=== PATIENT | female | born 1935 | race Caucasian/White ===

== ENCOUNTER → 2023-05-07 09:46 | Outpatient (REF) | payer OTHER, SELFPAY | LOC: RAD 09:46 | PROVIDERS: ATTENDING PHYSICIAN Surgery Vascular Surgery; FAMILY PHYSICIAN Internal Medicine Geriatric Medicine | DX: I65.23 Occlusion and stenosis of bilateral carotid arteries (principal) | CPT/HCPCS: 93880 ==

== ENCOUNTER 2023-06-25 17:54 | Emergency (ER) | payer OTHER, SELFPAY ==
[2023-06-25 17:59] VITALS: BP 117/93
[2023-06-25 18:00] VITALS: BP 121/94
[2023-06-25 18:10] LABS: Hemoglobin 10.8 g/dL (12.0-16.0); Mean Corp Hgb Conc. 33.8 g/dL (33.0-37.0); Mean Corpuscular Hgb 28.9 pg (27.0-31.0); Mean Corpuscular Volume 85.6 fL (81.0-99.0); Mean Platelet Volume 10.6 fL (7.4-10.4); Platelet Count 234 10^3/uL (130-400); Red Blood Cell Count 3.74 10^6/uL (4.20-5.40); Red Cell Dist. Width 14.2 % (11.5-14.5); White Blood Cell Count 5.2 10^3/uL (4.8-10.8)
[2023-06-25 18:25] LABS: ALT (SGPT) < 10 U/L (0-35); AST (SGOT) 23 U/L (14-36); Alkaline Phosphatase 66 U/L (38-126); Blood Urea Nitrogen 17 mg/dl (7-17); Calcium 9.4 mg/dl (8.4-10.2); Carbon Dioxide 24 mmol/L (22-30); Chloride 105 mmol/L (98-107); Estimated Creatinine Clearance 43 ml/min; Glucose 92 mg/dl (70-99); Potassium 4.3 mmol/L (3.5-5.1); Sodium 138 mmol/L (135-145); Total Bilirubin 0.4 mg/dl (0.2-1.3); Total Protein 7.1 g/dl (6.3-8.2); eGFR > 60.00
--- NOTE | 2023-06-25 18:26 | ED.CVA ---
History of Present Illness
General
Chief Complaint: CVA/TIA Symptoms
Source: patient
Exam Limitations: none
Time Seen by Provider: 06/25/23 18:06
Onset of Stroke Symptoms
Onset of symptoms known: Yes
Date of onset of symptoms: 06/25/23
Time of onset of symptoms: 17:30
Time pt last seen normal is known: Yes
Date last time pt seen normal: 06/25/23
Time last time pt seen normal: 17:29
Travel History
Have you had any contact with someone who has COVID-19?: No
Do you have any symptoms of coronavirus? Fever > 100 degrees, chills, cough, shortness of breath, sore throat, loss of taste or smell, muscle aches, or headache?: No
History of Present Illness
History of Present Illness:
88-year-old female with history of TIA and stroke presents from home via EMS with slurred speech and facial droop that started at 5:30 PM tonight. This started soon after the physical therapist left her house. She had an extra strenuous therapy
session with PT today. She has a history of TIAs presenting with slurred speech. She has history of bleeding and does not take any anticoagulants. Currently she states she feels back to her baseline. She denies headache chest pain abdominal pain
nausea vomiting or shortness of breath. She denies any unilateral numbness or weakness. She is accompanied by her son and sourcing manager and they states she is pretty much back to baseline at this time.
Past History
Past History
ED Past Medical History: Cancer (Lung), CVA (tia), HTN, Hypercholesterolemia and Other (gi bleed)
ED Past Surgical History: Other (Right upper lobectomy)
Social History
Tobacco: Former smoker
Alcohol: None
Drug: None
Personal: Single
Living: with family
Family History
Family History: Other (reviewed and noncontributory)
Phy Exam
Physical Exam
Physical Exam:
General: Well-appearing female no acute respiratory distress
HEENT: Normocephalic atraumatic neck is supple
Heart: Regular rate and rhythm no murmurs
Lungs: Clear no wheeze or rales
Neurologic: Alert and oriented x 3 no facial droop. No slurred speech finger-nose intact no drift [id number] intact.
Extremities: No cyanosis
Course
Orders/Labs/Results
Orders:
Orders
06/25/23 18:00
Electrocardiogram (*1) Urgent
Reason for Study: Fatigue / Weakness
EKG- Treatment ONCE
06/25/23 18:04
CMP [Comprehensive Metabolic Panel] Urgent
Complete Blood Count/With Diff Urgent
Manual Differential Urgent
06/25/23 18:17
CT Head W/o Iv Contrast Urgent
Comment:
Reason For Exam: slurred speech
Abnormal Lab Results
06/25/23
18:04
RBC 3.74 L 10^6/uL
(4.20-5.40)
Hgb 10.8 L g/dL
(12.0-16.0)
Hct 32.0 L %
(37.0-47.0)
MPV 10.6 H fL
(7.4-10.4)
Abs Neuts (Manual) 1.3 L 10^3/uL
(1.4-6.5)
Segmented Neutrophils 25 L %
(42-75)
Monocytes (Manual) 22 H %
(2-9)
06/25/23 18:04
06/25/23 18:04
Vital Signs
Initial and Last Documented VS:
Initial Vital Signs
Temp Pulse Resp BP Pulse Ox
97.9 F 69 18 117/93 97
06/25/23 17:59 06/25/23 17:59 06/25/23 17:59 06/25/23 17:59 06/25/23 17:59
Last Documented Vital Signs
Temp Pulse Resp BP Pulse Ox
97.9 F 64 13 121/94 96
06/25/23 17:59 06/25/23 18:30 06/25/23 18:30 06/25/23 18:00 06/25/23 18:30
MDM/Problems Addressed
Differential Diagnosis Includes:
Episode of slurred speech and facial droop now seemingly resolved. Question fatigue from physical therapy versus TIA versus anemia versus electrolyte abnormality. EKG through triage shows sinus rhythm with a rate of 66. CT head pending. Symptoms
back to baseline with an NIH of 0. Not a TNK candidate.
*Critical Care Note
Total Time (30-74mins, 75-104mins- exclusive of procedures): Not Applicable
Update Note
Update Note:
Patient reexamined still at neurologic baseline no deficits noted. CT head negative. Labs reviewed without significant finding. Patient is requesting to go home. She is accompanied by son and sourcing manager. They also are in agreement with
discharge. Question possible TIA but Renzo will not change if that were the case. No intervention necessary at this time
ED Attending Note
-
Portions of this chart may have been created with voice recognition software.� Occasional wrong word or��sound alike� substitutions may have occurred due to the inherent limitations of voice recognition software.
Discharge Plan
Departure
Patient Disposition: Home (Routine Discharge)
Date of Disposition: 06/25/23
Time of Disposition: 19:59
Patient with high blood pressure during this ER visit?: No
Discharge Problem:
episode of slurred speech
Instructions: Transient Ischemic Attack (DC)
Prescriptions:
No Action
albuterol sulfate 90 mcg/actuation Hfa Aerosol Inhaler
1 inh INHALATION R Q4 PRN (Reason: sob/wheezing)
pregabalin 150 mg capsule
150 mg PO HS
Patient Comments:
06/25/2023: last filled 06/15/23, 60 tabs for 30 days from [facility]
pregabalin 150 mg capsule
150 mg PO DAILY PRN (Reason: foot pain)
Patient Comments:
06/25/2023: last filled 06/15/23, 60 tabs for 30 days from [facility]
Centrum Adult 50 Plus 80 mcg Tablet,Chewable
1 tab PO DAILY
Breztri Aerosphere 160-9-4.8 mcg/actuation Hfa Aerosol Inhaler
2 inh INHALATION R BID
Referrals:
Anders Brown MD [Family Provider] -
Activity Restrictions/Additional Instructions:
Please return here for worsening symptoms. Follow-up with your family doctor otherwise
Interventions
Interventions:
*Risk Screen - Suicide Last Done: 06/25/23 18:01
*General Assessment Last Done: 06/25/23 18:01
*Neglect/Abuse Screening Last Done: 06/25/23 18:01
*ED COVID-19 Vaccine History Last Done: 06/25/23 18:01
ED- Pulmonary Assessment Last Done: 06/25/23 18:02
ED- Neurological Assessment Last Done: 06/25/23 18:02
ED- Cardiac Assessment Last Done: 06/25/23 18:02
Discharge Date and Time
Print Language: GABONESE
[2023-06-25 18:40] LABS: Absolute Neutrophils -Man Diff 1.3 10^3/uL (1.4-6.5); Atypical Lymphocytes 2 %; Band Neutrophils 0 % (0-3); Lymphocytes 51 % (20-51); Monocytes 22 % (2-9); Pathologist Reviewed No; Segmented Neutrophils 25 % (42-75)
[2023-06-25 18:41] LABS: Normal RBC Morphology Yes; Platelets Checked Yes; Total Cells Counted 100
[2023-06-25 20:17] VITALS: BP 98/75
== END 2023-06-25 20:30 | disposition home or self-care (01) ==
LOC: EMR 17:54
PROVIDERS: EMERGENCY PHYSICIAN Emergency Medicine; FAMILY PHYSICIAN Internal Medicine Geriatric Medicine
DX: R47.81 Slurred speech (principal); R29.810 Facial weakness; Z86.73 Personal history of transient ischemic attack (TIA), and cerebral infarction without residual deficits; I10 Essential (primary) hypertension; E78.00 Pure hypercholesterolemia, unspecified; Z87.891 Personal history of nicotine dependence
CPT/HCPCS: 99284; 70450; 80053; 85025; 93005

== ENCOUNTER 2023-06-26 16:05 | Emergency (ER) | payer OTHER, SELFPAY ==
[2023-06-26 16:05] VITALS: BMI 23.2
[2023-06-26 16:18] VITALS: BP 100/62
--- NOTE | 2023-06-26 17:51 | ED.SKININJ ---
HPI-Injury
General
Chief Complaint: Fall
Source: patient
Exam Limitations: none
Time Seen by Provider: 06/26/23 16:10
Nursing documentation reviewed up to this point in time: agreed with
Travel History
Have you had any contact with someone who has COVID-19?: No
Do you have any symptoms of coronavirus? Fever > 100 degrees, chills, cough, shortness of breath, sore throat, loss of taste or smell, muscle aches, or headache?: No
History of Present Illness-Injury
Is this injury a work related problem?: No
Is pt an associate of [facility]?: No
Initial Injury comments:
Patient states she tripped on the tie to her robe and fell into the mulch. Hit head on firepit. No LOC. Was able to call for help form passerby. Sustained lac to right posterior scalp, left index finger and right wrist. Injury occurred just [employer]
Past History
Past History
ED Past Medical History: Cancer (Lung), CVA (tia), HTN, Hypercholesterolemia and Other (gi bleed)
ED Past Surgical History: Other (Right upper lobectomy)
Social History
Tobacco: Former smoker
Alcohol: None
Drug: None
Personal: Single
Living: with family
Family History
Family History: Other (reviewed and noncontributory)
Skin Exam
Laceration
Right Posterior Scalp:
Length in cm: 3
Orientation: vertical
Type of Laceration: simple
Any active bleeding?: no active bleeding
Distal skin color and temperature: normal-warm & good color
Normal distal neurovascular exam: Yes
Range of motion: full
Left Second Finger:
Length in cm: 2
Orientation: horizontal
Type of Laceration: simple
Any active bleeding?: no active bleeding
Distal skin color and temperature: normal-warm & good color
Normal distal neurovascular exam: Yes
Range of motion: full
Abrasion
Right Wrist:
Description of abrasion: superfical/clean
Phy Exam
General Physical Exam
General Presentation: well appearing and no apparent distress
General age: appears stated age
General Skin: warm and dry
General Habitus: normal
General Mental: alert
Anjali Coma Scale
Eye Opening: Spontaneous
Verbal Response: Oriented
Motor Response: Obeys Commands
GCS Total Score: 15
Musculoskeletal Exam
Musculoskeletal Exam: full ROM and neuro vasc intact
Skin Exam
Skin Exam: normal color, warm/dry and no rash
Psychiatric Exam
Psychiatric Exam: normal mood/affect
Course
Orders/Labs/Results
Orders:
Orders
06/26/23 16:[address] [CT Head W/o Iv Contrast] Urgent
Comment:
Reason For Exam: fall right head laceration no thinners
Vital Signs
Initial and Last Documented VS:
Initial Vital Signs
Temp Pulse Resp Pulse Ox
98.4 F 66 17 98
06/26/23 16:09 06/26/23 16:09 06/26/23 16:09 06/26/23 16:09
Last Documented Vital Signs
Temp Pulse Resp BP Pulse Ox
98.4 F 66 17 100/62 98
06/26/23 16:09 06/26/23 16:09 06/26/23 16:09 06/26/23 16:18 06/26/23 16:09
Procedures
Laceration Closure
Right Posterior Scalp:
Status of Wound: clean
Description of Wound Edges: sharp
Preparation: cleaned with saline
Anesthesia: 1% Lidocaine
Revision/Debridement: routine- no revision
Wound exploration: explored to base- no FB
Type of Closure: single layer closure
Skin Closure Material: skin guerita
Left Second Finger:
Status of Wound: clean
Description of Wound Edges: sharp
Preparation: cleaned with saline
Revision/Debridement: routine- no revision
Wound exploration: explored to base- no FB and no tendon involvement
Type of Closure: Dermabond-skin glue
*Radiology
Radiology exam reviewed: radiology read reviewed
*Pulse Oximetry
Patient hypoxic: no
*Critical Care Note
Total Time (30-74mins, 75-104mins- exclusive of procedures): Not Applicable
ED Attending Note
-
Portions of this chart may have been created with voice recognition software.� Occasional wrong word or��sound alike� substitutions may have occurred due to the inherent limitations of voice recognition software.
Discharge Plan
Departure
Patient Disposition: Home (Routine Discharge)
Date of Disposition: 06/26/23
Time of Disposition: 17:48
Patient with high blood pressure during this ER visit?: No
Condition: Good
Covid-19: Not Applicable
Discharge Problem:
Head injury, Laceration of scalp, Finger laceration
Instructions: Laceration Repair With Glue (DC), Head Injury in Adults (DC), Laceration Repair With Isabel (DC), Preventing falls in adults
Prescriptions:
No Action
albuterol sulfate 90 mcg/actuation Hfa Aerosol Inhaler
1 inh INHALATION R Q4 PRN (Reason: sob/wheezing)
pregabalin 150 mg capsule
150 mg PO HS
Patient Comments:
06/25/2023: last filled 06/15/23, 60 tabs for 30 days from [facility]
pregabalin 150 mg capsule
150 mg PO DAILY PRN (Reason: foot pain)
Patient Comments:
06/25/2023: last filled 06/15/23, 60 tabs for 30 days from [facility]
Centrum Adult 50 Plus 80 mcg Tablet,Chewable
1 tab PO DAILY
Breztri Aerosphere 160-9-4.8 mcg/actuation Hfa Aerosol Inhaler
2 inh INHALATION R BID
Referrals:
Anders Brown MD [Family Provider] - (Guerita can be removed in 7-10 days.)
Activity Restrictions/Additional Instructions:
Scalp guerita can be removed in 7-10 days. Do not remove tape strips on finger.
Interventions
Interventions:
*Risk Screen - Suicide Last Done: 06/26/23 16:09
*General Assessment Last Done: 06/26/23 16:09
*Neglect/Abuse Screening Last Done: 06/26/23 16:09
ED- Fall Risk Assessment Last Done: 06/26/23 16:09
*ED COVID-19 Vaccine History Last Done: 06/26/23 16:09
ED-Musculoskeletal Assessment Last Done: 06/26/23 16:09
ED- Neurological Assessment Last Done: 06/26/23 16:09
ED-Skin Assessment Last Done: 06/26/23 16:09
Discharge Date and Time
Print Language: MONGOLIAN
[2023-06-26 18:25] VITALS: BP 85/62
[2023-06-26 19:15] VITALS: BP 101/75; BP 90/53; BP 99/74; PULSE 71; PULSE 78; PULSE 82
== END 2023-06-26 19:19 | disposition home or self-care (01) ==
LOC: EMR 16:05
PROVIDERS: EMERGENCY PHYSICIAN Emergency Medicine; FAMILY PHYSICIAN Internal Medicine Geriatric Medicine
DX: S01.01XA Laceration without foreign body of scalp, initial encounter (principal); S61.211A Laceration without foreign body of left index finger without damage to nail, initial encounter; S60.811A Abrasion of right wrist, initial encounter; S09.90XA Unspecified injury of head, initial encounter; W01.198A Fall on same level from slipping, tripping and stumbling with subsequent striking against other object, initial encounter; I10 Essential (primary) hypertension; E78.00 Pure hypercholesterolemia, unspecified; Z85.118 Personal history of other malignant neoplasm of bronchus and lung; Z86.73 Personal history of transient ischemic attack (TIA), and cerebral infarction without residual deficits; Z87.891 Personal history of nicotine dependence; Z90.2 Acquired absence of lung [part of]
CPT/HCPCS: 99284; 12002; 12001; 70450